=== PATIENT | female | born 1980 | race Caucasian/White ===

== ENCOUNTER → 2016-05-07 | Outpatient (CLI) | payer BC ==
[~2016-05-07] MED LIST: ACET-1311; PRENTAB26
== END | disposition home or self-care (01) ==
LOC: C.PAPS 16:32
PROVIDERS: ATTEND Obstetrics & Gynecology
DX: N76.0 Acute vaginitis (principal); R87.610 Atypical squamous cells of undetermined significance on cytologic smear of cervix (ASC-US)

== ENCOUNTER → 2016-06-08 | Outpatient (CLI) | payer BC ==
--- NOTE | 2016-06-11 15:15 | MAMMOGRAPHY REPORT ---
BILATERAL DIGITAL SCREENING MAMMOGRAM TOMOSYNTHESIS WITH CAD: 06/08/2016 CLINICAL HISTORY: Baseline examination. TECHNIQUE: Breast tomosynthesis in addition to standard 2D mammography was performed. Current study was also evaluated with a Computer Aided Detection (CAD) system. COMPARISON: No prior exams were available for comparison. BREAST COMPOSITION: The tissue of both breasts is extremely dense, which lowers the sensitivity of mammography. FINDINGS: There is a round circumscribed 5 mm mass seen within the left superior posterior breast o n the MLO view only, thought to project laterally based on the tomosynthesis localizer bar although not seen on the cc view. Recommend XCCL view, spot compression tomosynthesis views, and possible br east ultrasound for further evaluation. This may represent a cyst or intramammary lymph node. The remainder of both breasts are negative, without suspicious masses, calcifications, or areas of a rchitectural distortion noted. IMPRESSION: ACR BI-RADS CATEGORY 0: INCOMPLETE EVALUATION: NEED ADDITIONAL IMAGING EVALUATION Left superior breast mass, for which additional imaging evaluation is recommended. The patient will be called to schedule an appointment. Approximately 10% of breast cancers are not detected with mammography. A negative mammographic repor t should not delay biopsy if a clinically suggestive mass is present. Mini Dawn M.D. ah/:06/09/2016 12:30:46 Drier And Pulverizer Tender: Shraddha BARRETO)(Shae), [facility] letter sent: Addl Imaging 0 BI-RADS Code: ACR BI-RADS Category 0: Incomplete Evaluation: Need Additional Imaging Evaluation
== END | disposition home or self-care (01) ==
LOC: C.MAMM 13:09
PROVIDERS: ATTEND Obstetrics & Gynecology
DX: Z12.31 Encounter for screening mammogram for malignant neoplasm of breast (principal); N63 Unspecified lump in breast

== ENCOUNTER → 2016-06-22 | Outpatient (CLI) | payer BC ==
--- NOTE | 2016-06-22 14:56 | MAMMOGRAPHY REPORT ---
UNILATERAL LEFT DIGITAL DIAGNOSTIC MAMMOGRAM TOMOSYNTHESIS AND TARGETED LEFT ULTRASOUND: 06/22/2016 CLINICAL HISTORY: Callback from screening mammogram for left breast mass. The patient reports a fam megha history of breast cancer with her mother diagnosed at age 45. TECHNIQUE: Breast tomosynthesis in addition to standard 2D mammography was performed. Spot xander eligio left MLO and left XCCL tomosynthesis images including c views and a 2-D left X CCL view were ob tained. COMPARISON: Comparison is made to exam dated: 06/08/2016 mammogram - [facility]. BREAST COMPOSITION: The tissue of the left breast is extremely dense, which lowers the sensitivity of mammography. FINDINGS: Spot compression views of the left breast demonstrate a persistent oval circumscribed 5 m m mass seen within the left superior posterior breast, not clearly evident on the XCCL views althoug h is located laterally based on the tomosynthesis localizer bar. Targeted ultrasound was performed of the region of the mammographic mass within the left 2 to 3:00 b reast. In the left breast at 3:00, 6 cm from the nipple, there is an oval circumscribed 5 x 3 x 3 m m mass, which contains a echogenic fatty hilum and peripheral hypoechoic cortex as well as central i nternal vascularity. This corresponds with the mammographic mass and is consistent with a morpholog ically normal intramammary lymph node. No suspicious solid masses were evident. IMPRESSION: ACR BI-RADS CATEGORY 2: BENIGN, TARGETED ULTRASOUND ACR BI-RADS CATEGORY 2: BENIGN The mammographic mass corresponds with a benign 5 mm intramammary lymph node in the left 3:00 breast . There is no mammographic or targeted sonographic evidence of malignancy. A 1 year screening mammo gram is recommended. Additionally, given the strong family history of breast cancer, the patient hazel gonzalez qualify for yearly screening breast MRI in addition to yearly mammography if her lifetime risk is greater than 20% based on risk models. The patient has been verbally notified of the results. Approximately 10% of breast cancers are not detected with mammography. A negative mammographic repor t should not delay biopsy if a clinically suggestive mass is present. Mini Dawn M.D. ah/:06/22/2016 10:17:30 Operations Label Clerk: Elvia JACKSON(Sepideh)(M), [facility] letter sent: Normal 02/26 BI-RADS Code: ACR BI-RADS Category 2: Benign Ultrasound BI-RADS: ACR BI-RADS Category 2: Benign
== END | disposition home or self-care (01) ==
LOC: C.MAMM 09:23
PROVIDERS: ATTEND Obstetrics & Gynecology
DX: N63 Unspecified lump in breast (principal)

== ENCOUNTER → 2017-05-17 | Outpatient (CLI) | payer BC ==
--- NOTE | 2017-05-17 08:53 | DIAGNOSTIC IMAGING REPORT ---
THYROID ULTRASOUND HISTORY: Thyroid nodule. COMPARISON: None. FINDINGS: Right lobe: 4.7 x 1.4 cm. No nodules. Left lobe: 4.7 x 1.4 cm. No nodules. Isthmus: 2 mm in thickness. No nodules. IMPRESSION: Normal thyroid ultrasound. Electronically signed by: Mauricio Riddle M.D. 05/17/2017 8:52 AM Dictated Date/Time: 05/17/2017 8:51 AM
== END | disposition home or self-care (01) ==
LOC: C.ULTR 08:29
PROVIDERS: ATTEND Internal Medicine Endocrinology, Diabetes & Metabolism
DX: E04.1 Nontoxic single thyroid nodule (principal)

== ENCOUNTER → 2017-06-14 | Outpatient (CLI) | payer BC ==
--- NOTE | 2017-06-17 08:07 | MAMMOGRAPHY REPORT ---
BILATERAL DIGITAL SCREENING MAMMOGRAM TOMOSYNTHESIS WITH CAD: 06/14/2017 CLINICAL HISTORY: Routine screening. Patient has no complaints. TECHNIQUE: Breast tomosynthesis in addition to standard 2D mammography was performed. Current study was also evaluated with a Computer Aided Detection (CAD) system. COMPARISON: Comparison is made to exams dated: 06/22/2016 mammogram and 06/08/2016 mammogram - [facility]. BREAST COMPOSITION: The tissue of both breasts is extremely dense, which lowers the sensitivity of m ammography. FINDINGS: No suspicious masses, calcifications, or areas of architectural distortion are noted in ei ther breast. There has been no significant interval change compared to prior exams. IMPRESSION: ACR BI-RADS CATEGORY 1: NEGATIVE There is no mammographic evidence of malignancy. A 1 year screening mammogram is recommended. Additio sonny, given the strong family history of breast cancer, the patient may qualify for yearly screening breast MRI in addition to yearly mammography if her lifetime risk is greater than 20% based on risk models. The patient will receive written notification of the results. Approximately 10% of breast cancers are not detected with mammography. A negative mammographic report should not delay biopsy if a clinically suggestive mass is present. Mini Dawn M.D. /:06/14/2017 14:02:25 Educational Technologist: Kelley BARRETO)(Shae)([place]), [facility] letter sent: Normal 1/2 BI-RADS Code: ACR BI-RADS Category 1: Negative
== END | disposition home or self-care (01) ==
LOC: C.MAMM 12:20
PROVIDERS: ATTEND Obstetrics & Gynecology
DX: Z12.31 Encounter for screening mammogram for malignant neoplasm of breast (principal)

== ENCOUNTER → 2017-06-26 | Outpatient (CLI) | payer BC | END | disposition home or self-care (01) | LOC: C.PAPS 15:48 | PROVIDERS: ATTEND Obstetrics & Gynecology | DX: Z01.419 Encounter for gynecological examination (general) (routine) without abnormal findings (principal) ==

== ENCOUNTER → 2017-10-09 | Outpatient (CLI) | payer BC ==
[~2017-10-09] MED LIST changes: +GADAVIST IV PRN
--- NOTE | 2017-10-10 15:41 | MAMMOGRAPHY REPORT ---
BREAST MRI OF BOTH BREASTS: 10/09/2017 CLINICAL HISTORY: 37-year-old woman presents for additional screening with breast MRI. She has a hist ory of dense breastS and family history of premenopausal breast cancer. COMPARISON: Bilateral screening mammograms dated 06/08/2016, 06/14/2017, left diagnostic mammogram and ultrasound dated 06/22/2016. TECHNIQUE: Using a 1.5 Shahida magnet and dedicated breast coil, multisequence axial images were obtain ed through the breasts. After uneventful IV administration of 7 mL of Gadavist, dynamic multiphase c ontrast-enhanced axial images, and sagittal postcontrast were obtained. Temporal subtraction axial i mages and 3-D MIP images are provided. Everything was then reviewed on a 3-D workstation, [place]. FINDINGS: Right breast: There is mild background parenchymal enhancement of the right breast. There is a 6 x 4 x 2 mm enhancing mass in the 11:00 posterior right breast with associated persistent type kinetics a nd a small focus of plateau and washout kinetics along the medial and posterior aspect (axial page 35 /116, sagittal page 100/120). There is corresponding T2 bright signal suggesting this could represen t a fibroadenoma although targeted second look ultrasound with possible ultrasound-guided core biopsy is recommended. No other suspicious enhancing mass, non-mass enhancement, suspicious kinetics or ar chitectural distortion is identified in the right breast. The nipple areola complex is intact. The retromammary fat is intact. No suspicious right axillary lymphadenopathy. Left breast: There is mild background parenchymal enhancement of the left breast. There is a dominan t area of focal non-mass enhancement in the 12:00 middle to posterior left breast measuring 13 x 10 x 10 mm with associated persistent kinetics, isointense T2 signal (axial page 34/116, sagittal page 28 /120). Although this could represent focal fibrocystic change, DCIS could appear similar on MRI and further characterization with an MRI guided biopsy is recommended, as second look ultrasound would li cinda be unyielding. There is another prominent focus of enhancement in the 12:00 to 1:00 posterior l eft breast measuring 4 x 5 x 4 mm with associated plateau and persistent kinetics, no significant T2 hyperintensity (axial page 38/116, sagittal page 25/120) for which second look ultrasound could also be performed at time of second look ultrasound in the right breast. The nipple areola complex is int act. The retromammary fat is intact. No suspicious left axillary lymphadenopathy. IMPRESSION: ACR BI-RADS CATEGORY 0: INCOMPLETE EVALUATION: NEED ADDITIONAL IMAGING EVALUATION 1. There is focal non-mass enhancement in the 12:00 left breast measuring 13 x 10 x 10 mm, for which MRI guided biopsy is recommended. 2. Prior to the MRI biopsy, bilateral breast targeted second look ultrasound is recommended for a 5 mm focus of enhancement in the 12:00 to 1:00 posterior left breast and a 6 mm enhancing mass in the 1 1:00 posterior right breast. If lesions are identified on second look ultrasound, ultrasound-guided c ore biopsy is recommended (45 minutes). Otherwise, further management will be made at time of second look ultrasound, considering possibilities of MRI guided biopsy versus follow-up breast MRI to ensur e stability. Alyson Jones M.D. ay/:10/09/2017 21:19:54 Behavioral Health Specialist: wrap yarn sorter, [facility] letter sent: Addl Imaging 0 BI-RADS Code: ACR BI-RADS Category 0: Incomplete Evaluation: Need Additional Imaging Evaluation
== END | disposition home or self-care (01) ==
LOC: C.MRI 11:27
PROVIDERS: ATTEND Obstetrics & Gynecology
DX: R92.8 Other abnormal and inconclusive findings on diagnostic imaging of breast (principal); Z15.01 Genetic susceptibility to malignant neoplasm of breast